=== PATIENT | male | born 1980 | race Caucasian/White ===

== ENCOUNTER 2024-11-17 10:46 | Outpatient (REF) | payer OTHER, SELFPAY ==
--- NOTE | ~2024-11-17 | XR_ITS ---
EXAMINATION: XR WRIST, LEFT CLINICAL INFORMATION: LEFT WRIST PAIN, SWELLING COMPARISON: None available. TECHNIQUE: PA, lateral, and oblique views of the left wrist. FINDINGS: The bones and soft tissues are normal. No fracture. Alignment is anatomic with normal joint spaces. No erosions or abnormal soft tissue calcifications. Mild negative ulnar variance noted. XR/XR wrist LT min 3V IMPRESSION: Normal left wrist. Electronically signed by: Erick Simmons MD 11/18/2024 09:26 AM EDT
--- NOTE | ~2024-11-17 | XR_ITS ---
EXAMINATION: XR THUMB, LEFT CLINICAL INFORMATION: LEFT THUMB PAIN, SWELLING COMPARISON: None available. TECHNIQUE: Three views of the left thumb. FINDINGS: The bones and soft tissues are normal. No fracture. Alignment is anatomic. Joint spaces are maintained. XR/XR finger LT min 2V IMPRESSION: Normal thumb radiographs. Electronically signed by: Erick Simmons MD 11/18/2024 09:26 AM EDT
== END 2024-11-17 10:47 | disposition home or self-care (01) ==
LOC: HO.HMGCX 10:46
PROVIDERS: PCP Internal Medicine; Visit Provider Internal Medicine
DX: M25.532 Pain in left wrist (principal); M79.645 Pain in left finger(s)
CPT/HCPCS: 73110; 73140

== ENCOUNTER → 2024-11-17 10:57 | Outpatient (BNV) | payer OTHER, SELFPAY | PROVIDERS: PCP Internal Medicine; Visit Provider Radiology Diagnostic Radiology | DX: M25.532 Pain in left wrist (principal); M79.645 Pain in left finger(s); R22.32 Localized swelling, mass and lump, left upper limb | CPT/HCPCS: 73110; 73140 ==